=== PATIENT | male | born 1995 | race Caucasian/White ===

== ENCOUNTER 2018-04-30 11:47 | Emergency (ER) | payer OTHER ==
--- NOTE | 2018-04-30 12:12 | EDPHY ---
H & P Stated Complaint: generalized abd pain since yesterday and h/a Time Seen by Provider: 04/30/18 12:11 HPI/ROS: CHIEF COMPLAINT: Headache and abdominal pain HISTORY OF PRESENT ILLNESS: Patient presents to the ED with a 1 day history of headache and abdominal pain. The patient reports his symptoms began after a night of heavy drinking on Halloween. The patient was seen at the [facility] and was noted to have a leukocytosis. He is referred to the ED for further evaluation. The patient was noted to have a low-grade fever of 100.7. The patient complains of a mild frontal headache but denies neck stiffness. He has no complaints of sore throat or cough. The patient does complain of generalized abdominal discomfort which is poorly localized. The patient denies any rash. He did receive oral Tylenol prior to arrival. REVIEW OF SYSTEMS: A comprehensive 10 point review of systems is otherwise negative aside from elements mentioned in the history of present illness. Source: Patient - Medical/Surgical History Hx Asthma: No Hx Chronic Respiratory Disease: No Hx Diabetes: No Hx Cardiac Disease: No Hx Renal Disease: No Hx Cirrhosis: No Hx Alcoholism: No Hx HIV/AIDS: No Hx Splenectomy or Spleen Trauma: No Other PMH: migraines - Social History Smoking Status: Current every day smoker - Physical Exam Exam: General Appearance: Alert, no distress Eyes: Pupils equal and round no pallor or injection ENT, Mouth: Mucous membranes moist Respiratory: There are no retractions, lungs are clear to auscultation Cardiovascular: Regular rate and rhythm Gastrointestinal: Minimal generalized abdominal tenderness, no focal tenderness noted in the right lower quadrant, no peritoneal signs or guarding appreciated Neurological: A&O, normal motor function, normal sensory exam, normal cranial nerves Skin: Warm and dry, no rashes Musculoskeletal: Neck is supple nontender Extremities: symmetrical, full range of motion Psychiatric: Patient is oriented X 3, there is no agitation Constitutional: Initial Vital Signs Temperature (C) 37.0 C 04/30/18 11:51 Heart Rate 87 04/30/18 11:51 Respiratory Rate 16 04/30/18 11:51 Blood Pressure 118/73 04/30/18 11:51 O2 Sat (%) 97 04/30/18 11:51 O2 Delivery Mode Room Air Allergies/Adverse Reactions: No Known Allergies Allergy (Unverified 04/30/18 11:49) Home Medications: Medication Instructions Recorded Ondansetron Odt [Zofran Odt] 4 mg PO Q4PRN PRN #20 tab 04/30/18 Medical Decision Making ED Course/Re-evaluation: The patient had an IV established. He received a L of normal saline. He received 4 mg of Zofran and 30 mg of Toradol. Reviewed his blood testing from the [facility]. He does have a leukocytosis. I find the patient's abdominal examination to be benign without evidence of an acute abdomen. Additional laboratory testing in the emergency department today demonstrates no evidence of pancreatitis. I re-evaluated the patient at 2:15 p.m.. He is feeling much better. He has no clinical evidence of meningitis and his headache has resolved. His abdominal examination remains benign. He presents the ED with abdominal pain and headache in the setting of recent heavy alcohol use and possibly a mild viral illness. The patient will be instructed to use ibuprofen and Zofran as needed for management of his symptoms. I do not feel the patient requires lumbar puncture for evaluation of his resolved headache. The patient will be instructed to return to the ED for any headache, neck stiffness, worsening abdominal pain or other concerns. Differential Diagnosis: Differential diagnosis considered includes viral syndrome, dehydration, mesenteric adenitis, sinusitis, bronchitis, influenza - Data Points Laboratory Results: 04/30/18 12:17 Total Bilirubin 1.1 mg/dL mg/dL (0.1-1.4) Conjugated Bilirubin 0.2 mg/dL mg/dL (0.0-0.5) Unconjugated Bilirubin 0.9 mg/dL mg/dL (0.0-1.1) AST 82 IU/L H IU/L (17-59) ALT 33 IU/L IU/L (21-72) Alkaline Phosphatase 75 IU/L IU/L (38-126) Total Protein 7.1 g/dL g/dL (6.3-8.2) Albumin 4.2 g/dL g/dL (3.5-5.0) Lipase 44 IU/L IU/L (23-300) Medications Given: Discontinued Medications Sodium Chloride (Ns) 1,000 mls @ 0 mls/hr IV EDNOW ONE; Wide Open PRN Reason: Protocol Stop: 04/30/18 12:17 Last Admin: 04/30/18 12:25 Dose: 1,000 mls Sodium Chloride (Ns) 1,000 mls @ 0 mls/hr IV EDNOW ONE; Wide Open PRN Reason: Protocol Stop: 04/30/18 12:17 Last Admin: 04/30/18 12:26 Dose: 1,000 mls Ketorolac Tromethamine (Toradol) 30 mg IVP EDNOW ONE Stop: 04/30/18 12:17 Last Admin: 04/30/18 12:26 Dose: 30 mg Ondansetron HCl (Zofran) 4 mg IVP EDNOW ONE Stop: 04/30/18 12:17 Last Admin: 04/30/18 12:26 Dose: 4 mg Departure - Departure Disposition: Home, Routine, Self-Care Clinical Impression: Viral syndrome Abdominal pain Qualifiers: Abdominal location: generalized Qualified Code(s): R10.84 - Generalized abdominal pain Condition: Good Instructions: Viral Syndrome (ED) Additional Instructions: 1. Take Ibuprofen or Motrin 600 mg by mouth three times a day. 2. Zofran as needed for nausea 3. Please return to the ED immediately for any increasing headache, worsening abdominal pain, intractable vomiting, high fever or neck stiffness 4. Be sure to drink plenty of fluids Prescriptions: Ondansetron Odt [Zofran Odt] 4 mg PO Q4PRN PRN #20 tab PRN Reason: For Nausea
[2018-04-30] MEDS ORDERED: NS 1,000 ML IV ONE ×2 (12:16)
[2018-04-30] MEDS ORDERED: ONDANSETRON 4 MG/2 ML VIAL IVP ONE (12:16)
[2018-04-30] MEDS ORDERED: KETOROLAC 30 MG/1 ML SDV IVP ONE (12:16)
[2018-04-30] MEDS ORDERED: KETOROLAC 15 MG/1 ML SDV ONE (12:22)
[2018-04-30 14:37] VITALS: BP 131/74
== END 2018-04-30 14:35 | disposition home or self-care (01) ==
DX: R10.84 Generalized abdominal pain (principal); B34.9 Viral infection, unspecified; F17.200 Nicotine dependence, unspecified, uncomplicated
CPT/HCPCS: 96374; J1885; J2405